=== PATIENT | male | born 1985 | race African-American/Black ===

== ENCOUNTER 2020-01-02 05:12 | Emergency (ER) | payer OTHER ==
[~2020-01-02] VITALS: Ht 190.5 cm; Wt 90.7 kg
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
[2020-01-02 05:32] VITALS: BP 134/85
--- NOTE | 2020-01-02 05:56 | NUR ---
ED Nurse Note: [employer] at bedside
[2020-01-02] MEDS ORDERED: Lidocaine 1% 10mg/ml/EPI 0.01mg/ml 30ml INJ ONE (06:00)
[2020-01-02] MEDS ORDERED: Omnipaque 350 100ml vial INJ PRN (06:15)
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
[2020-01-02] MEDS ORDERED: CEPHALEXIN500 MG ORAL (06:20)
--- NOTE | 2020-01-02 07:00 | NUR ---
HAND-OFF: Report given to ROHIT Santoyo.
--- NOTE | 2020-01-02 07:01 | NUR ---
ED Nurse Note: Report received from ROHIT Rosenbaum. pt seen in bed resting, no acute distress is noted. will contienue to monitor. awaiting to have CTA at this time.
[2020-01-02 07:02] VITALS: BP 148/83
[2020-01-02 07:28] LABS: ANION GAP 13 mmol/L (5-15); BLOOD UREA NITROGEN 22 mg/dL (7-18); CALCIUM 9.4 MG/DL (8.5-10.1); CARBON DIOXIDE 24 MMOL/L (21-32); CHLORIDE 102 MMOL/L (98-107); CREATININE 1.5 MG/DL (0.55-1.30); POTASSIUM 3.5 MMOL/L (3.5-5.1); SODIUM 139 MMOL/L (136-145)
--- NOTE | 2020-01-02 07:54 | NUR ---
ED Nurse Note: jim placed in by Dr lebron at bedside
[2020-01-02] MEDS ORDERED: BACITRACIN1 EACH TOPIC (07:55)
[2020-01-02] MEDS ORDERED: Bacitracin Oint UD TOPIC ONE ×2 (07:56→08:00)
--- NOTE | 2020-01-02 08:06 | NUR ---
ED Nurse Note: wound cleansed and applied dry dressing by plating tank operator. pt is cleared to be discharged per ERMD, pt is aox4, on room air, with stable vital signs. pt was given dc and prescription instructions, pt was able to verbalize understanding, pt id band and iv site removed without complications. pt is able to ambulate with steady gait. pt took all belongings.
[2020-01-02 08:07] VITALS: BP 170/86
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
== END 2020-01-02 08:06 | disposition home or self-care (01) ==
LOC: EMR 05:33
DX: S71.112A Laceration without foreign body, left thigh, initial encounter (principal); X99.9XXA Assault by unspecified sharp object, initial encounter; Y92.9 Unspecified place or not applicable; Z88.8 Allergy status to other drugs, medicaments and biological substances
CPT/HCPCS: 13120; 36415; 73552; 80048; Z7502; 99283

== ENCOUNTER 2020-01-18 03:21 | Emergency (ER) | payer OTHER ==
[~2020-01-18] VITALS: Ht 190.5 cm; Wt 86.2 kg
[~2020-01-18 03:21] MED LIST: BACITRACIN1 EACH TOPIC; CEPHALEXIN500 MG ORAL
[2020-01-18 03:30] VITALS: BP 155/92
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
[2020-01-18] MEDS ORDERED: CEPHALEXIN500 MG ORAL (03:50)
[2020-01-18] MEDS ORDERED: BACTRIM DS TAB1 EAC1 ORAL (03:50)
--- NOTE | 2020-01-18 03:50 | NUR ---
ED Nurse Note: ERMD removed 4 jim without complication.
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
[2020-01-18 04:05] VITALS: BP 138/75
--- NOTE | 2020-01-18 04:05 | NUR ---
ER DISCHARGE NOTE: Patient is cleared to be discharged per ERMD, pt is aox4, on room air, with stable vital signs. pt was given dc and prescription instructions, pt was able to verbalize understanding, pt id band removed. pt is able to ambulate with steady gait. pt took all belongings.
== END 2020-01-18 04:05 | disposition home or self-care (01) ==
LOC: EMR 03:40
DX: S71.112A Laceration without foreign body, left thigh, initial encounter (principal); Z48.02 Encounter for removal of sutures; W45.8XXA Other foreign body or object entering through skin, initial encounter; Y92.9 Unspecified place or not applicable; Z88.8 Allergy status to other drugs, medicaments and biological substances
CPT/HCPCS: 99281